=== PATIENT | female | born 1960 | race Caucasian/White ===

== ENCOUNTER 2016-10-23 17:55 | Inpatient (IN) ==
[2016-10-23] MEDS ORDERED: Acetaminophen 325 MG TABLET PO PRN (18:26)
[2016-10-23] MEDS ORDERED: Dextrose Gel 15 GM PO PRN ×2 (19:00)
[2016-10-23] MEDS ORDERED: *HR* Dextrose 50 % in Water (Syg) 50 ML SYRINGE IVP PRN (19:00)
[2016-10-23] MEDS ORDERED: D5% in Water 1,000 ML IVC PRN (19:00)
[2016-10-23] MEDS ORDERED: Insulin DETEMIR 100 UNIT/ML per UNIT SQ ONE (21:00)
[2016-10-23] MEDS: Insulin LISPRO 300 UNITS/3 ML VIAL SQ SCH (21:46)
[2016-10-23] MEDS: *HR* OxyCODONE/APAP 10/325 TABLET PO PRN (21:47)
[2016-10-24] MEDS: *HR* OxyCODONE/APAP 10/325 TABLET PO PRN ×3 (06:31→18:19)
[2016-10-24] MEDS: *HR* Enoxaparin 40 MG/0.4 ML SYRINGE SQ SCH (06:31)
[2016-10-24] MEDS ORDERED: Furosemide 20 MG TABLET PO SCH ×2 (09:00→16:01)
[2016-10-24] MEDS ORDERED: amLODIPine 5 MG TABLET PO SCH (09:00)
[2016-10-24] MEDS ORDERED: Ascorbic Acid 500 MG TABLET PO SCH (09:00)
[2016-10-24] MEDS: Insulin LISPRO 300 UNITS/3 ML VIAL SQ SCH ×4 (09:22→21:27)
[2016-10-24] MEDS: Insulin DETEMIR 100 UNIT/ML X5UNITS SQ SCH ×2 (09:23→21:30)
--- NOTE | 2016-10-24 15:44 | Internal Med History&Physical ---
Date of Encounter: 10/24/16 Time of Encounter: 15:20 Assessment and Plan (1) Complete below knee amputation of right lower extremity Current visit: Yes Status: Acute She will have physical therapy and occupational therapy evaluations with ongoing interventions. She will follow with Dr. Rogers as scheduled. Qualifiers: Encounter type: initial encounter Qualified Code(s): S88.111A - Complete traumatic amputation at level between knee and ankle, right lower leg, initial encounter (2) Ascites Current visit: No Status: Acute Will increase Lasix Qualifiers: Ascites type: other type Qualified Code(s): R18.8 - Other ascites (3) Anemia Current visit: No Status: Chronic Continue ferrous sulfate and vitamin C. We will monitor CBC. Qualifiers: Anemia type: unspecified type Qualified Code(s): D64.9 - Anemia, unspecified (4) Hypertension Current visit: No Status: Chronic We will discontinue amlodipine to lessen edema. Will increase Lasix as per above. Qualifiers: Hypertension type: essential hypertension Qualified Code(s): I10 - Essential (primary) hypertension Internal Medicine - H&P: HPI Chief complaint: Right BKA Admitted From: Hospital to Hospital Transfer Plans for Post Hospital Care: Home History of present illness: Ms. Star Durham is a 56 year old female who was hospitalized at [facility] October 07- where she underwent BKA for progressive right lower leg infection. Her postop course was generally unremarkable and she was admitted to [facility] swing bed for rehabilitation therapy prior to returning home. She had 2 paracentesis performed during her stay by interventional radiology. The right abdominal drainage site continued to drain with an ostomy bag placed. The left side sealed adequately following the procedure. Past Med Surg Social Fam HX - Past Medical History Medical history: diabetes, GERD, hyperlipidemia Psychiatric history: anxiety, depression - Past Surgical History Surgical History: cholecystectomy, other - Social History Smoking Status: Former smoker Smokeless Tobacco Status: No Alcohol use: none Drug use: unknown - Family History Mother Living Status: Hx Family Cardiac Disorders: Yes Hx Family Respiratory Disorders: No Hx Family Cancer: Yes Hx Family GI Disorders: No Hx Family Endocrine Disorder: No Hx Family Neuromuscular Disorders: No Hx Family Neurologic Disorders: No Hx Family HEENT Disorders: No Hx Family Autoimmune Disorders: No Father Living Status: Hx Family Endocrine Disorder: Yes Internal Medicine - H&P: Meds Medroxyprogesterone Acetate [Depo-Provera] 150 mg IJ [id number] 02/03/15 [History] Sertraline [Zoloft] 100 mg PO DAILY 02/03/15 [History] Furosemide [Lasix] 20 mg PO DAILY 10/08/16 [History] Omeprazole [PriLOSEC] 20 mg PO DAILY 10/08/16 [History] Acetaminophen [Tylenol] 650 mg PO Q6HR PRN #0 tablet 10/23/16 [Rx] Amlodipine [Norvasc] 10 mg PO DAILY tablet 10/23/16 [Rx] Ascorbic Acid [Vitamin C] 500 mg PO DAILY tablet 10/23/16 [Rx] Collagenase Oint [Santyl] 1 appl TP BID tube 10/23/16 [Rx] Docusate [Colace] 100 mg PO BID capsule 10/23/16 [Rx] Ferrous Sulfate 325 mg PO BIDWM tablet 10/23/16 [Rx] Insulin DETEMIR [Levemir] 10 unit SQ BID [id number] 10/23/16 [Rx] Insulin LISPRO [HumaLOG] 8 units SQ TIDWM vial 10/23/16 [Rx] OxyCODONE/APAP 10/325 [Percocet 10/325 MG] 1 each PO Q6HR PRN #20 tablet [Rx] Allergies No Known Allergies Allergy (Verified 10/07/16 14:55) All Systems PM: A 10-system review of systems was performed and is negative for pertinent findings except as documented above in the HPI. Review of systems: Gen.: She states her weight has been stable the past few months Cardiovascular: She has a history of hypertension but denies AK heart failure angina DVT or pulmonary embolus. Echocardiogram done 10/08/2016 showed LVEF of 55-60% with moderate LV diastolic dysfunction. There was no significant valvular abnormality seen. There was LAE at 4.20 cm. The interventricular septum and posterior wall thickness measurements were 1.0 cm each. Respiratory: She smoked for a few years in her 20s but denies chronic lung disease GI: She has known liver hemangioma and follows at [facility]. She reports the hemangioma has been present for at least 20 years. She had 2 paracentesis procedures as per above but denies a diagnosis of cirrhosis. Denies other disorders of her liver gallbladder or exocrine pancreas : She had a kidney stone in the remote past. She denies other kidney or bladder disorders Neurologic: She denies large distribution strokes or seizures. Endocrine: She was diagnosed with DM 2 at age 30. She has low HDL. She denies thyroid disease Hematology/oncology: She has anemia but denies internal malignancies Psychiatric: She has depression but denies anxiety or other mental health issues Musculoskeletal: She has right hand deformity as defect. She denies other bone joint or muscle disorders. She had BKA at her recent [facility] stay - Constitutional Vitals: Temp Pulse Resp BP Pulse Ox 98.3 F 80 17 141/69 96 10/24/16 07:15 10/24/16 09:42 10/24/16 09:42 10/24/16 09:42 10/24/16 09:42 Exam: Gen.: She is a well-developed well-nourished female who appears in no severe distress at present time HEENT: Head is atraumatic and normocephalic. Eyes: EOMI. There is no scleral icterus. Mouth: Mucosa is moist. Neck: Supple and nontender. There is no thyromegaly or adenopathy noted. Heart: Regular without murmurs gallops or ectopics. Lungs: No wheezes or crackles are heard. Abdomen: He has a large abdomen with ascites draining into a collection bag in the right anterolateral abdominal wall. The abdomen is nontender to palpation. Extremities: She has 1-2+ edema of the dorsum of the left foot and lower leg. She has trace pitting edema of the thighs bilaterally. She has deformity of the left hand with the thumb showing abnormal angulation at the IP joint and the fifth finger present but deformed. No other fingers are present on the hand. The right hand is unremarkable. The right lower leg is wrapped in elastic wrap which I did not unwrap. Neurologic: Mental status: She is talkative and a good historian. Cranial nerves: Smile is symmetric. Forehead wrinkles bilaterally. Tongue protrudes midline. EOMI. Motor: There is no pronator drift. Cerebellar: Finger to nose is intact bilaterally. Skin: Warm and dry.
[2016-10-25] MEDS: *HR* OxyCODONE/APAP 10/325 TABLET PO PRN ×4 (00:15→23:08)
[2016-10-25] MEDS: *HR* Enoxaparin 40 MG/0.4 ML SYRINGE SQ SCH (06:25)
[2016-10-25] MEDS ORDERED: Ascorbic Acid 500 MG TABLET PO SCH (06:30)
[2016-10-25] MEDS: Insulin LISPRO 300 UNITS/3 ML VIAL SQ SCH ×4 (08:23→19:55)
[2016-10-25] MEDS: Furosemide 40 MG TABLET PO SCH (09:02)
[2016-10-25] MEDS: Insulin DETEMIR 100 UNIT/ML X5UNITS SQ SCH ×2 (09:07→20:03)
[2016-10-25] MEDS: Ondansetron ODT 4 MG TAB.RAPDIS SL PRN (11:19)
--- NOTE | 2016-10-25 12:45 | Internal Med Progress Note ---
Date of Encounter: 10/25/16 Time of Encounter: 12:35 - Assessment and plan (1) Complete below knee amputation of right lower extremity Current Visit: Yes Status: Acute Assessment and plan: October 25. Continue therapy interventions and follow with Dr. Rogers as scheduled Qualifiers: Encounter type: initial encounter Qualified Code(s): S88.111A - Complete traumatic amputation at level between knee and ankle, right lower leg, initial encounter (2) Ascites Current Visit: No Status: Acute Assessment and plan: October 25. Continue Lasix. Qualifiers: Ascites type: other type Qualified Code(s): R18.8 - Other ascites (3) Anemia Current Visit: No Status: Chronic Assessment and plan: October 25. Continue ferrous sulfate and vitamin C. Qualifiers: Anemia type: unspecified type Qualified Code(s): D64.9 - Anemia, unspecified (4) Hypertension Current Visit: No Status: Chronic Assessment and plan: October 25. Remain off amlodipine. Continue Lasix. Qualifiers: Hypertension type: essential hypertension Qualified Code(s): I10 - Essential (primary) hypertension - Subjective Interval history: October 25. She has no new complaints. - Constitutional Vitals: Temp Pulse Resp BP Pulse Ox 98.1 F 85 16 147/69 93 10/25/16 11:25 10/25/16 11:25 10/25/16 11:25 10/25/16 11:25 10/25/16 11:25 Exam: She is resting comfortably in bed. Her edema has slightly lessened in the legs. I reviewed her medications and lab results. Consult Discharge Plan - Plan Referrals: Magdy Desir MD [Primary Care Provider] - 1 week
[2016-10-26] MEDS: *HR* Enoxaparin 40 MG/0.4 ML SYRINGE SQ SCH (05:35)
[2016-10-26] MEDS: Ascorbic Acid 500 MG TABLET PO SCH (05:35)
[2016-10-26] MEDS: *HR* OxyCODONE/APAP 10/325 TABLET PO PRN ×2 (05:43→16:14)
[2016-10-26] MEDS: Furosemide 40 MG TABLET PO SCH (08:36)
[2016-10-26] MEDS: Insulin LISPRO 300 UNITS/3 ML VIAL SQ SCH ×4 (08:37→21:53)
[2016-10-26] MEDS: Insulin DETEMIR 100 UNIT/ML X5UNITS SQ SCH (08:37)
[2016-10-26] MEDS: Ondansetron ODT 4 MG TAB.RAPDIS SL PRN (08:37)
--- NOTE | 2016-10-26 19:08 | Internal Med Progress Note ---
Date of Encounter: 10/26/16 Time of Encounter: 19:00 - Assessment and plan (1) Complete below knee amputation of right lower extremity Current Visit: Yes Status: Acute Assessment and plan: October 25. Continue therapy interventions and follow with Dr. Rogers as scheduled Qualifiers: Encounter type: initial encounter Qualified Code(s): S88.111A - Complete traumatic amputation at level between knee and ankle, right lower leg, initial encounter (2) Ascites Current Visit: No Status: Acute Assessment and plan: October 25. Continue Lasix. October 26. Increase Lasix to 60 mg daily. Qualifiers: Ascites type: other type Qualified Code(s): R18.8 - Other ascites (3) Anemia Current Visit: No Status: Chronic Assessment and plan: October 25. Continue ferrous sulfate and vitamin C. October 26. Recheck labs in a.m. Qualifiers: Anemia type: unspecified type Qualified Code(s): D64.9 - Anemia, unspecified (4) Hypertension Current Visit: No Status: Chronic Assessment and plan: October 25. Remain off amlodipine. Continue Lasix. Qualifiers: Hypertension type: essential hypertension Qualified Code(s): I10 - Essential (primary) hypertension (5) Insulin dependent diabetes mellitus Current Visit: No Status: Chronic Assessment and plan: October 26. Will increase Levemir to 15 units twice a day - Subjective Interval history: October 25. She has no new complaints. October 26. She has no new complaints and feels well overall. - Constitutional Vitals: Temp Pulse Resp BP Pulse Ox 98.3 F 91 16 117/52 91 10/26/16 18:30 10/26/16 18:30 10/26/16 18:30 10/26/16 18:30 10/26/16 18:30 Exam: She is resting comfortably in bed. Her left leg edema has lessened slightly. Blood pressure remains acceptable off amlodipine. Reviewed her medications and lab results. Consult Discharge Plan - Plan Referrals: Magdy Desir MD [Primary Care Provider] - 1 week
[2016-10-26] MEDS ORDERED: Insulin DETEMIR 100 UNIT/ML per UNIT SQ ONE (21:00)
[2016-10-27] MEDS: Ascorbic Acid 500 MG TABLET PO SCH (05:41)
[2016-10-27] MEDS: *HR* Enoxaparin 40 MG/0.4 ML SYRINGE SQ SCH (05:41)
[2016-10-27] MEDS: *HR* OxyCODONE/APAP 10/325 TABLET PO PRN ×4 (05:49→23:10)
[2016-10-27] MEDS: Insulin DETEMIR 100 UNIT/ML X5UNITS SQ SCH ×2 (08:31→21:49)
[2016-10-27] MEDS: Furosemide 40 MG TABLET PO SCH (08:31)
[2016-10-27] MEDS: Insulin LISPRO 300 UNITS/3 ML VIAL SQ SCH ×4 (08:32→21:51)
[2016-10-27 09:36] LABS: Alanine Aminotransferase < 6 Units/L (0-55); Albumin 2.1 g/dL (3.5-5.0); Albumin/Globulin Ratio 0.6 (1.1-2.2); Alkaline Phosphatase 102 Units/L (38-126); Aspartate Amino Transferase 7 Units/L (5-34); BUN/Creatinine Ratio 12 (6-26); Bilirubin,Total 0.4 mg/dL (0.2-1.2); Blood Urea Nitrogen 9 mg/dL (7-20); Calcium 7.9 mg/dL (8.6-10.8); Carbon Dioxide 28 mEq/L (19-29); Chloride 102 mEq/L (98-109); Globulin 3.6 g/dL (2.4-3.5); Glucose 354 mg/dL (70-99); Magnesium 1.5 mg/dL (1.6-2.6); Osmolality,Calculated 305 (280-300); Potassium 3.2 mEq/L (3.5-4.5); Sodium 141 mEq/L (136-145); Total Protein 5.7 g/dL (6.0-8.3); eGFR For African Americans > 60 (> 60); eGFR For Non-African Americans > 60 (> 60)
[2016-10-27 09:59] LABS: Basophils % 0.3 %; Eosinophils # 0.1 K/mcL (0.0-0.6); Eosinophils % 1.5 %; Hematocrit 25.8 % (35.3-44.9); Lymphocytes # 2.1 K/mcL (0.6-4.6); Lymphocytes % 22.3 %; Mean Corpuscular Hemoglobin 25.4 pg (28.0-33.3); Mean Corpuscular Volume 81.9 fL (83.0-100.0); Mean Platelet Volume 9.9 fL (9.4-12.4); Monocytes # 0.6 K/mcL (0.0-1.3); Monocytes % 6.1 %; Neutrophils # 6.3 K/mcL (1.6-8.9); Platelet Count 345 K/mcL (140-400); Red Blood Count 3.15 M/mcL (3.82-4.97); Red Cell Distribution Width 17.6 % (11.5-14.5); Segmented Neutrophils % 67.8 %
--- NOTE | 2016-10-27 18:11 | Internal Med Progress Note ---
Date of Encounter: 10/27/16 Time of Encounter: 15:10 - Assessment and plan (1) Complete below knee amputation of right lower extremity Current Visit: Yes Status: Acute Assessment and plan: October 25. Continue therapy interventions and follow with Dr. Rogers as scheduled Qualifiers: Encounter type: initial encounter Qualified Code(s): S88.111A - Complete traumatic amputation at level between knee and ankle, right lower leg, initial encounter (2) Ascites Current Visit: No Status: Acute Assessment and plan: October 25. Continue Lasix. October 26. Increase Lasix to 60 mg daily. Qualifiers: Ascites type: other type Qualified Code(s): R18.8 - Other ascites (3) Anemia Current Visit: No Status: Chronic Assessment and plan: October 25. Continue ferrous sulfate and vitamin C. October 26. Recheck labs in a.m. October 27. Hemoglobin has improved 8.0. Continue present management Qualifiers: Anemia type: unspecified type Qualified Code(s): D64.9 - Anemia, unspecified (4) Hypertension Current Visit: No Status: Chronic Assessment and plan: October 25. Remain off amlodipine. Continue Lasix. Qualifiers: Hypertension type: essential hypertension Qualified Code(s): I10 - Essential (primary) hypertension (5) Insulin dependent diabetes mellitus Current Visit: No Status: Chronic Assessment and plan: October 26. Will increase Levemir to 15 units twice a day (6) Hypokalemia Current Visit: Yes Status: Acute Assessment and plan: October 27. Will start potassium supplement. (7) Hypomagnesemia Current Visit: No Status: Resolved Assessment and plan: October 27. Magnesium level returned low at 1.5. We will start magnesium supplementation. - Subjective Interval history: October 25. She has no new complaints. October 26. She has no new complaints and feels well overall. October 27. She has no new complaints. - Constitutional Vitals: Temp Pulse Resp BP Pulse Ox 98.4 F 86 16 124/68 93 10/27/16 06:16 10/27/16 06:16 10/27/16 06:16 10/27/16 06:16 10/27/16 09:15 Exam: She is resting comfortably in bed. Her affect is bright and cheerful. Her left lower leg edema has minimally decreased. I reviewed her medications and lab results. Internal Medicine: Result - Labs CBC & Chem 7: 10/27/16 07:24 10/27/16 07:24 Labs: Short CBC 10/27/16 Range/Units 07:24 WBC 9.3 (4.3-11.1) K/mcL Hgb 8.0 L (11.5-15.4) g/dL Hct 25.8 L (35.3-44.9) % Plt Count 345 (140-400) K/mcL Neutrophils # 6.3 (1.6-8.9) K/mcL BMP 10/27/16 07:24 Sodium 141 Potassium 3.2 L Chloride 102 Carbon Dioxide 28 BUN 9 Creatinine 0.75 Glucose 354 H Calcium 7.9 L Liver Function 10/27/16 Range/Units 07:24 Total Bilirubin 0.4 (0.2-1.2) mg/dL AST 7 (5-34) Units/L ALT < 6 (0-55) Units/L Alkaline Phosphatase 102 (38-126) Units/L Albumin 2.1 L (3.5-5.0) g/dL Consult Discharge Plan - Plan Referrals: Magdy Desir MD [Primary Care Provider] - 1 week
[2016-10-28] MEDS: *HR* OxyCODONE/APAP 10/325 TABLET PO PRN ×2 (06:16→17:50)
[2016-10-28] MEDS: Ascorbic Acid 500 MG TABLET PO SCH (06:16)
[2016-10-28] MEDS: *HR* Enoxaparin 40 MG/0.4 ML SYRINGE SQ SCH (06:17)
[2016-10-28] MEDS: Furosemide 40 MG TABLET PO SCH (07:54)
[2016-10-28] MEDS: Magnesium Oxide 400 MG TABLET PO SCH (07:54)
[2016-10-28] MEDS: Ondansetron ODT 4 MG TAB.RAPDIS SL PRN (07:55)
[2016-10-28] MEDS: Insulin LISPRO 300 UNITS/3 ML VIAL SQ SCH ×4 (08:00→20:52)
[2016-10-28] MEDS: Insulin DETEMIR 100 UNIT/ML X5UNITS SQ SCH ×2 (09:18→20:52)
[2016-10-29] MEDS: *HR* OxyCODONE/APAP 10/325 TABLET PO PRN ×4 (01:47→22:21)
[2016-10-29] MEDS: *HR* Enoxaparin 40 MG/0.4 ML SYRINGE SQ SCH (06:20)
[2016-10-29] MEDS: Ascorbic Acid 500 MG TABLET PO SCH (06:20)
[2016-10-29] MEDS: Ondansetron ODT 4 MG TAB.RAPDIS SL PRN (06:45)
[2016-10-29] MEDS: Insulin LISPRO 300 UNITS/3 ML VIAL SQ SCH ×4 (08:40→22:22)
[2016-10-29] MEDS: Magnesium Oxide 400 MG TABLET PO SCH (08:46)
[2016-10-29] MEDS: Furosemide 40 MG TABLET PO SCH (08:46)
[2016-10-29] MEDS: Insulin DETEMIR 100 UNIT/ML X5UNITS SQ SCH ×2 (09:17→22:22)
--- NOTE | 2016-10-29 11:43 | Internal Med Progress Note ---
Date of Encounter: 10/29/16 Time of Encounter: 11:35 - Assessment and plan (1) Complete below knee amputation of right lower extremity Current Visit: Yes Status: Acute Assessment and plan: October 25. Continue therapy interventions and follow with Dr. Rogers as scheduled Qualifiers: Encounter type: initial encounter Qualified Code(s): S88.111A - Complete traumatic amputation at level between knee and ankle, right lower leg, initial encounter (2) Ascites Current Visit: No Status: Acute Assessment and plan: October 25. Continue Lasix. October 26. Increase Lasix to 60 mg daily. October 29. Improved. Continue present regimen Qualifiers: Ascites type: other type Qualified Code(s): R18.8 - Other ascites (3) Anemia Current Visit: No Status: Chronic Assessment and plan: October 25. Continue ferrous sulfate and vitamin C. October 26. Recheck labs in a.m. October 27. Hemoglobin has improved 8.0. Continue present management October 29. Recheck labs in a.m. Qualifiers: Anemia type: unspecified type Qualified Code(s): D64.9 - Anemia, unspecified (4) Hypertension Current Visit: No Status: Chronic Assessment and plan: October 25. Remain off amlodipine. Continue Lasix. October 29. Blood pressure stable. Continue present regimen Qualifiers: Hypertension type: essential hypertension Qualified Code(s): I10 - Essential (primary) hypertension (5) Insulin dependent diabetes mellitus Current Visit: No Status: Chronic Assessment and plan: October 26. Will increase Levemir to 15 units twice a day October 29. Hemoglobin A1c was 12.6% on 10/07/2016. Will increase Levemir to 18 units twice a day. (6) Hypokalemia Current Visit: Yes Status: Acute Assessment and plan: October 27. Will start potassium supplement. October 29. Continue potassium supplementation and recheck labs in a.m. (7) Hypomagnesemia Current Visit: No Status: Acute Assessment and plan: October 27. Magnesium level returned low at 1.5. We will start magnesium supplementation. October 29. Recheck labs in a.m. - Subjective Interval history: October 25. She has no new complaints. October 26. She has no new complaints and feels well overall. October 27. She has no new complaints. October 29. She has no new complaints and feels better. - Constitutional Vitals: Temp Pulse Resp BP Pulse Ox 98.1 F 86 18 155/66 94 10/29/16 06:59 10/29/16 06:59 10/29/16 06:59 10/29/16 06:59 10/29/16 06:59 Exam: She is resting comfortably in bed. Her affect is bright and cheerful. Her edema has lessened in her legs. Heart is regular without murmurs gallops or ectopics. Lungs are clear anteriorly. I reviewed her medications and lab results. Internal Medicine: Result - Labs CBC & Chem 7: 10/27/16 07:24 10/27/16 07:24 Consult Discharge Plan - Plan Referrals: Magdy Desir MD [Primary Care Provider] - 1 week
[2016-10-30 05:34] LABS: Basophils % 0.3 %; Eosinophils # 0.3 K/mcL (0.0-0.6); Eosinophils % 3.3 %; Hematocrit 26.1 % (35.3-44.9); Hemoglobin 7.9 g/dL (11.5-15.4); Immature Granulocytes % 1.6 % (0-4); Lymphocytes # 2.5 K/mcL (0.6-4.6); Lymphocytes % 32.2 %; Mean Corpuscular HGB Conc 30.3 g/dL (31.6-35.5); Mean Corpuscular Hemoglobin 24.8 pg (28.0-33.3); Mean Corpuscular Volume 81.8 fL (83.0-100.0); Mean Platelet Volume 9.7 fL (9.4-12.4); Monocytes # 0.5 K/mcL (0.0-1.3); Monocytes % 6.8 %; Neutrophils # 4.3 K/mcL (1.6-8.9); Platelet Count 315 K/mcL (140-400); Red Blood Count 3.19 M/mcL (3.82-4.97); Red Cell Distribution Width 17.6 % (11.5-14.5); Segmented Neutrophils % 55.8 %
[2016-10-30 05:50] LABS: BUN/Creatinine Ratio 14 (6-26); Blood Urea Nitrogen 10 mg/dL (7-20); Calcium 8.1 mg/dL (8.6-10.8); Carbon Dioxide 30 mEq/L (19-29); Chloride 98 mEq/L (98-109); Glucose 253 mg/dL (70-99); Magnesium 1.6 mg/dL (1.6-2.6); Osmolality,Calculated 300 (280-300); Potassium 3.1 mEq/L (3.5-4.5); Sodium 141 mEq/L (136-145); eGFR For African Americans > 60 (> 60); eGFR For Non-African Americans > 60 (> 60)
[2016-10-30] MEDS: *HR* Enoxaparin 40 MG/0.4 ML SYRINGE SQ SCH (06:30)
[2016-10-30] MEDS: *HR* OxyCODONE/APAP 10/325 TABLET PO PRN ×3 (06:30→22:32)
[2016-10-30] MEDS: Ascorbic Acid 500 MG TABLET PO SCH (06:30)
[2016-10-30] MEDS: Insulin LISPRO 300 UNITS/3 ML VIAL SQ SCH ×4 (07:42→22:25)
[2016-10-30] MEDS: Ondansetron ODT 4 MG TAB.RAPDIS SL PRN (07:52)
[2016-10-30] MEDS: Magnesium Oxide 400 MG TABLET PO SCH (09:29)
[2016-10-30] MEDS: Furosemide 40 MG TABLET PO SCH (09:29)
[2016-10-30] MEDS: Insulin DETEMIR 100 UNIT/ML X5UNITS SQ SCH ×2 (09:31→22:25)
[2016-10-31] MEDS: *HR* Enoxaparin 40 MG/0.4 ML SYRINGE SQ SCH (06:20)
[2016-10-31] MEDS: Ascorbic Acid 500 MG TABLET PO SCH (06:20)
[2016-10-31] MEDS: Ondansetron ODT 4 MG TAB.RAPDIS SL PRN (06:24)
[2016-10-31] MEDS: *HR* OxyCODONE/APAP 10/325 TABLET PO PRN ×2 (06:25→16:58)
[2016-10-31] MEDS: Furosemide 40 MG TABLET PO SCH (07:55)
[2016-10-31] MEDS: Magnesium Oxide 400 MG TABLET PO SCH (07:55)
[2016-10-31] MEDS: Insulin LISPRO 300 UNITS/3 ML VIAL SQ SCH ×4 (07:57→20:45)
[2016-10-31] MEDS: Insulin DETEMIR 100 UNIT/ML X5UNITS SQ SCH ×2 (09:56→20:43)
--- NOTE | 2016-10-31 12:07 | Internal Med Progress Note ---
Date of Encounter: 10/31/16 Time of Encounter: 11:50 - Assessment and plan (1) Complete below knee amputation of right lower extremity Current Visit: Yes Status: Acute Assessment and plan: October 25. Continue therapy interventions and follow with Dr. Rogers as scheduled Qualifiers: Encounter type: initial encounter Qualified Code(s): S88.111A - Complete traumatic amputation at level between knee and ankle, right lower leg, initial encounter (2) Ascites Current Visit: No Status: Acute Assessment and plan: October 25. Continue Lasix. October 26. Increase Lasix to 60 mg daily. October 29. Improved. Continue present regimen October 31. We will change to Bumex and add low-dose Aldactone. Qualifiers: Ascites type: other type Qualified Code(s): R18.8 - Other ascites (3) Anemia Current Visit: No Status: Chronic Assessment and plan: October 25. Continue ferrous sulfate and vitamin C. October 26. Recheck labs in a.m. October 27. Hemoglobin has improved 8.0. Continue present management October 29. Recheck labs in a.m. October 31. Recheck labs in a.m. Qualifiers: Anemia type: unspecified type Qualified Code(s): D64.9 - Anemia, unspecified (4) Hypertension Current Visit: No Status: Chronic Assessment and plan: October 25. Remain off amlodipine. Continue Lasix. October 29. Blood pressure stable. Continue present regimen October 2. Blood pressure fluctuating. We will change from Lasix to Bumex and add low-dose Aldactone as per above. Qualifiers: Hypertension type: essential hypertension Qualified Code(s): I10 - Essential (primary) hypertension (5) Insulin dependent diabetes mellitus Current Visit: No Status: Chronic Assessment and plan: October 26. Will increase Levemir to 15 units twice a day October 29. Hemoglobin A1c was 12.6% on 10/07/2016. Will increase Levemir to 18 units twice a day. October 31. Blood sugars consistently elevated. Will increase Levemir to 25 units twice a day. (6) Hypokalemia Current Visit: Yes Status: Acute Assessment and plan: October 27. Will start potassium supplement. October 29. Continue potassium supplementation and recheck labs in a.m. October 2. Will increase potassium supplement. (7) Hypomagnesemia Current Visit: No Status: Acute Assessment and plan: October 27. Magnesium level returned low at 1.5. We will start magnesium supplementation. October 29. Recheck labs in a.m. October 31. Continue magnesium oxide. - Subjective Interval history: October 25. She has no new complaints. October 26. She has no new complaints and feels well overall. October 27. She has no new complaints. October 29. She has no new complaints and feels better. October 31. She has no complaints and feels better. - Constitutional Vitals: Temp Pulse Resp BP Pulse Ox 98.2 F 71 18 128/64 95 10/31/16 06:23 10/31/16 06:23 10/31/16 06:23 10/31/16 06:23 10/31/16 06:23 Exam: She is sitting in the chair eating lunch. Her edema is slightly improved in both legs. Her affect is bright and cheerful. I reviewed her medications and lab results. Internal Medicine: Result - Labs CBC & Chem 7: 10/30/16 04:30 10/30/16 04:30 Consult Discharge Plan - Plan Referrals: Magdy Desir MD [Primary Care Provider] - 1 week
[2016-10-31] MEDS: Spironolactone 25 MG TABLET PO SCH (16:58)
[2016-11-01 05:25] LABS: Basophils % 0.2 %; Eosinophils # 0.3 K/mcL (0.0-0.6); Eosinophils % 3.2 %; Hematocrit 26.4 % (35.3-44.9); Lymphocytes # 2.6 K/mcL (0.6-4.6); Lymphocytes % 26.6 %; Mean Corpuscular HGB Conc 30.3 g/dL (31.6-35.5); Mean Corpuscular Hemoglobin 24.9 pg (28.0-33.3); Mean Corpuscular Volume 82.2 fL (83.0-100.0); Mean Platelet Volume 9.7 fL (9.4-12.4); Monocytes # 0.5 K/mcL (0.0-1.3); Monocytes % 5.5 %; Neutrophils # 6.2 K/mcL (1.6-8.9); Platelet Count 299 K/mcL (140-400); Red Blood Count 3.21 M/mcL (3.82-4.97); Red Cell Distribution Width 17.3 % (11.5-14.5); Segmented Neutrophils % 63.5 %
[2016-11-01] MEDS: Ascorbic Acid 500 MG TABLET PO SCH (06:03)
[2016-11-01] MEDS: *HR* Enoxaparin 40 MG/0.4 ML SYRINGE SQ SCH (06:03)
[2016-11-01] MEDS: *HR* OxyCODONE/APAP 10/325 TABLET PO PRN ×4 (06:59→21:40)
[2016-11-01] MEDS: Insulin LISPRO 300 UNITS/3 ML VIAL SQ SCH ×3 (07:40→21:41)
[2016-11-01] MEDS: Bumetanide 1 MG TABLET PO SCH (07:41)
[2016-11-01] MEDS: Spironolactone 25 MG TABLET PO SCH (07:41)
[2016-11-01] MEDS: Magnesium Oxide 400 MG TABLET PO SCH (07:41)
[2016-11-01] MEDS: Insulin DETEMIR 100 UNIT/ML X5UNITS SQ SCH ×2 (09:21→21:41)
[2016-11-02] MEDS: Ascorbic Acid 500 MG TABLET PO SCH (06:28)
[2016-11-02] MEDS: *HR* Enoxaparin 40 MG/0.4 ML SYRINGE SQ SCH (06:28)
[2016-11-02] MEDS: Ondansetron ODT 4 MG TAB.RAPDIS SL PRN (06:42)
[2016-11-02] MEDS: *HR* OxyCODONE/APAP 10/325 TABLET PO PRN ×3 (06:44→19:15)
[2016-11-02] MEDS: Magnesium Oxide 400 MG TABLET PO SCH (08:05)
[2016-11-02] MEDS: Spironolactone 25 MG TABLET PO SCH (08:05)
[2016-11-02] MEDS: Insulin LISPRO 300 UNITS/3 ML VIAL SQ SCH ×4 (08:05→19:15)
[2016-11-02] MEDS: Bumetanide 1 MG TABLET PO SCH (08:05)
[2016-11-02] MEDS: Insulin DETEMIR 100 UNIT/ML X5UNITS SQ SCH ×2 (12:49→19:15)
--- NOTE | 2016-11-02 17:40 | Internal Med Progress Note ---
Date of Encounter: 11/02/16 Time of Encounter: 17:30 - Assessment and plan (1) Complete below knee amputation of right lower extremity Current Visit: Yes Status: Acute Assessment and plan: October 25. Continue therapy interventions and follow with Dr. Rogers as scheduled Qualifiers: Encounter type: initial encounter Qualified Code(s): S88.111A - Complete traumatic amputation at level between knee and ankle, right lower leg, initial encounter (2) Ascites Current Visit: No Status: Acute Assessment and plan: October 25. Continue Lasix. October 26. Increase Lasix to 60 mg daily. October 29. Improved. Continue present regimen October 31. We will change to Bumex and add low-dose Aldactone. November 02. Weight loss noted. Continue Bumex and Aldactone with potassium. Qualifiers: Ascites type: other type Qualified Code(s): R18.8 - Other ascites (3) Anemia Current Visit: No Status: Chronic Assessment and plan: October 25. Continue ferrous sulfate and vitamin C. October 26. Recheck labs in a.m. October 27. Hemoglobin has improved 8.0. Continue present management October 29. Recheck labs in a.m. October 2. Recheck labs in a.m. November 02. Hemoglobin stable. Continue present management Qualifiers: Anemia type: unspecified type Qualified Code(s): D64.9 - Anemia, unspecified (4) Hypertension Current Visit: No Status: Chronic Assessment and plan: October 25. Remain off amlodipine. Continue Lasix. October 29. Blood pressure stable. Continue present regimen October 2. Blood pressure fluctuating. We will change from Lasix to Bumex and add low-dose Aldactone as per above. November 02. Blood pressures are satisfactory. Continue present regimen Qualifiers: Hypertension type: essential hypertension Qualified Code(s): I10 - Essential (primary) hypertension (5) Insulin dependent diabetes mellitus Current Visit: No Status: Chronic Assessment and plan: October 26. Will increase Levemir to 15 units twice a day October 29. Hemoglobin A1c was 12.6% on 10/07/2016. Will increase Levemir to 18 units twice a day. October 2. Blood sugars consistently elevated. Will increase Levemir to 25 units twice a day. October 4. Blood sugars are improved. Continue Levemir 25 units twice a day (6) Hypokalemia Current Visit: Yes Status: Acute Assessment and plan: October 27. Will start potassium supplement. October 29. Continue potassium supplementation and recheck labs in a.m. October 31. Will increase potassium supplement. November 02. Potassium level now normal. Continue present dose supplement (7) Hypomagnesemia Current Visit: No Status: Acute Assessment and plan: October 27. Magnesium level returned low at 1.5. We will start magnesium supplementation. October 29. Recheck labs in a.m. October 31. Continue magnesium oxide. - Subjective Interval history: October 25. She has no new complaints. October 26. She has no new complaints and feels well overall. October 27. She has no new complaints. October 29. She has no new complaints and feels better. October 31. She has no complaints and feels better. November 02. She has no new complaints. - Constitutional Vitals: Temp Pulse Resp BP Pulse Ox 98.2 F 88 16 135/70 95 11/02/16 06:28 11/02/16 15:31 11/02/16 15:31 11/02/16 15:31 11/02/16 15:31 Exam: She is sitting on the side of the bed eating supper and is resting comfortable. Edema has decreased in her left leg. Her affect is bright and cheerful. I reviewed her medications and lab results. Internal Medicine: Result - Labs CBC & Chem 7: 11/01/16 04:20 10/30/16 04:30 Consult Discharge Plan - Plan Referrals: Magdy Desir MD [Primary Care Provider] - 1 week
[2016-11-03] MEDS: Ascorbic Acid 500 MG TABLET PO SCH (06:48)
[2016-11-03] MEDS: *HR* Enoxaparin 40 MG/0.4 ML SYRINGE SQ SCH (06:48)
[2016-11-03] MEDS: *HR* OxyCODONE/APAP 10/325 TABLET PO PRN ×3 (06:48→21:55)
[2016-11-03] MEDS: Ondansetron ODT 4 MG TAB.RAPDIS SL PRN (06:49)
[2016-11-03] MEDS: Bumetanide 1 MG TABLET PO SCH (08:58)
[2016-11-03] MEDS: Spironolactone 25 MG TABLET PO SCH (08:58)
[2016-11-03] MEDS: Magnesium Oxide 400 MG TABLET PO SCH (08:58)
[2016-11-03] MEDS: Insulin LISPRO 300 UNITS/3 ML VIAL SQ SCH ×4 (08:58→21:52)
[2016-11-03] MEDS: Insulin DETEMIR 100 UNIT/ML X5UNITS SQ SCH ×2 (08:58→21:51)
[2016-11-04] MEDS: *HR* Enoxaparin 40 MG/0.4 ML SYRINGE SQ SCH (05:55)
[2016-11-04] MEDS: *HR* OxyCODONE/APAP 10/325 TABLET PO PRN ×2 (05:56→17:38)
[2016-11-04] MEDS: Ascorbic Acid 500 MG TABLET PO SCH (05:56)
[2016-11-04] MEDS: Bumetanide 1 MG TABLET PO SCH (08:06)
[2016-11-04] MEDS: Spironolactone 25 MG TABLET PO SCH (08:07)
[2016-11-04] MEDS: Magnesium Oxide 400 MG TABLET PO SCH (08:07)
[2016-11-04] MEDS: Insulin LISPRO 300 UNITS/3 ML VIAL SQ SCH ×4 (08:07→20:19)
[2016-11-04] MEDS: Insulin DETEMIR 100 UNIT/ML X5UNITS SQ SCH ×2 (09:16→20:18)
[2016-11-05] MEDS: *HR* OxyCODONE/APAP 10/325 TABLET PO PRN ×3 (00:02→21:39)
[2016-11-05 05:39] LABS: Hematocrit 28.2 % (35.3-44.9); Hemoglobin 8.6 g/dL (11.5-15.4); Mean Corpuscular HGB Conc 30.5 g/dL (31.6-35.5); Mean Corpuscular Hemoglobin 24.7 pg (28.0-33.3); Mean Platelet Volume 9.3 fL (9.4-12.4); Platelet Count 327 K/mcL (140-400); Red Blood Count 3.48 M/mcL (3.82-4.97); Red Cell Distribution Width 17.1 % (11.5-14.5)
[2016-11-05] MEDS: *HR* Enoxaparin 40 MG/0.4 ML SYRINGE SQ SCH (06:00)
[2016-11-05] MEDS: Ascorbic Acid 500 MG TABLET PO SCH (06:00)
[2016-11-05 06:05] LABS: BUN/Creatinine Ratio 22 (6-26); Blood Urea Nitrogen 15 mg/dL (7-20); Calcium 9.6 mg/dL (8.6-10.8); Carbon Dioxide 30 mEq/L (19-29); Chloride 98 mEq/L (98-109); Glucose 231 mg/dL (70-99); Osmolality,Calculated 296 (280-300); Potassium 4.6 mEq/L (3.5-4.5); Sodium 139 mEq/L (136-145); eGFR For African Americans > 60 (> 60); eGFR For Non-African Americans > 60 (> 60)
[2016-11-05] MEDS: Bumetanide 1 MG TABLET PO SCH (08:04)
[2016-11-05] MEDS: Magnesium Oxide 400 MG TABLET PO SCH (08:04)
[2016-11-05] MEDS: Spironolactone 25 MG TABLET PO SCH (08:04)
[2016-11-05] MEDS: Insulin LISPRO 300 UNITS/3 ML VIAL SQ SCH ×4 (08:05→21:41)
[2016-11-05] MEDS: Insulin DETEMIR 100 UNIT/ML X5UNITS SQ SCH ×2 (09:03→21:42)
[2016-11-06] MEDS: *HR* Enoxaparin 40 MG/0.4 ML SYRINGE SQ SCH (06:30)
[2016-11-06] MEDS: *HR* OxyCODONE/APAP 10/325 TABLET PO PRN ×2 (06:31→17:55)
[2016-11-06] MEDS: Ascorbic Acid 500 MG TABLET PO SCH (06:31)
[2016-11-06] MEDS: Bumetanide 1 MG TABLET PO SCH (07:40)
[2016-11-06] MEDS: Insulin LISPRO 300 UNITS/3 ML VIAL SQ SCH ×4 (07:41→20:34)
[2016-11-06] MEDS: Spironolactone 25 MG TABLET PO SCH (07:41)
[2016-11-06] MEDS: Magnesium Oxide 400 MG TABLET PO SCH (07:43)
[2016-11-06] MEDS: Insulin DETEMIR 100 UNIT/ML X5UNITS SQ SCH ×2 (10:08→20:33)
--- NOTE | 2016-11-06 15:40 | Internal Med Progress Note ---
Date of Encounter: 11/06/16 Time of Encounter: 15:30 - Assessment and plan (1) Complete below knee amputation of right lower extremity Current Visit: Yes Status: Acute Assessment and plan: October 25. Continue therapy interventions and follow with Dr. Rogers as scheduled November 06. She will need a manual wheelchair for DME in the home. This will be her means of mobility and she is able to operate it effectively. Qualifiers: Encounter type: initial encounter Qualified Code(s): S88.111A - Complete traumatic amputation at level between knee and ankle, right lower leg, initial encounter (2) Ascites Current Visit: No Status: Acute Assessment and plan: October 25. Continue Lasix. October 26. Increase Lasix to 60 mg daily. October 29. Improved. Continue present regimen October 31. We will change to Bumex and add low-dose Aldactone. November 02. Weight loss noted. Continue Bumex and Aldactone with potassium. November 06. Continue present dose Bumex and Aldactone. Will decrease supplemental potassium since she has mild hyperkalemia. Qualifiers: Ascites type: other type Qualified Code(s): R18.8 - Other ascites (3) Anemia Current Visit: No Status: Chronic Assessment and plan: October 25. Continue ferrous sulfate and vitamin C. October 26. Recheck labs in a.m. October 27. Hemoglobin has improved 8.0. Continue present management October 29. Recheck labs in a.m. October 2. Recheck labs in a.m. November 02. Hemoglobin stable. Continue present management November 06. Hemoglobin improved to 8.6. Continue present therapy Qualifiers: Anemia type: unspecified type Qualified Code(s): D64.9 - Anemia, unspecified (4) Hypertension Current Visit: No Status: Chronic Assessment and plan: October 25. Remain off amlodipine. Continue Lasix. October 29. Blood pressure stable. Continue present regimen October 2. Blood pressure fluctuating. We will change from Lasix to Bumex and add low-dose Aldactone as per above. November 02. Blood pressures are satisfactory. Continue present regimen Qualifiers: Hypertension type: essential hypertension Qualified Code(s): I10 - Essential (primary) hypertension (5) Insulin dependent diabetes mellitus Current Visit: No Status: Chronic Assessment and plan: October 26. Will increase Levemir to 15 units twice a day October 29. Hemoglobin A1c was 12.6% on 10/07/2016. Will increase Levemir to 18 units twice a day. October 31. Blood sugars consistently elevated. Will increase Levemir to 25 units twice a day. November 02. Blood sugars are improved. Continue Levemir 25 units twice a day November 06. Blood sugars are now elevated. Will increase Levemir further to 30 units twice a day (6) Hypokalemia Current Visit: Yes Status: Acute Assessment and plan: October 27. Will start potassium supplement. October 29. Continue potassium supplementation and recheck labs in a.m. October 2. Will increase potassium supplement. November 02. Potassium level now normal. Continue present dose supplement November 06. Will reduce dose to 20 mEq daily since potassium level is now 4.6. (7) Hypomagnesemia Current Visit: No Status: Acute Assessment and plan: October 27. Magnesium level returned low at 1.5. We will start magnesium supplementation. October 29. Recheck labs in a.m. October 2. Continue magnesium oxide. November 06. Magnesium level was 2.0 yesterday. Continue magnesium oxide. - Subjective Interval history: October 25. She has no new complaints. October 26. She has no new complaints and feels well overall. October 27. She has no new complaints. October 29. She has no new complaints and feels better. October 31. She has no complaints and feels better. November 02. She has no new complaints. November 06. She has no new complaints and feels well. She states her abdominal drainage resolved and the drainage bag has now been removed. - Constitutional Vitals: Temp Pulse Resp BP Pulse Ox 98.7 F 78 16 126/58 96 11/06/16 09:39 11/06/16 13:01 11/06/16 13:01 11/06/16 13:01 11/06/16 13:01 Exam: She is resting comfortably in bed. Her leg edema has essentially resolved on the left. Affect is bright and cheerful. I reviewed her medications and lab results. Internal Medicine: Result - Labs CBC & Chem 7: 11/05/16 05:26 11/05/16 05:26 Consult Discharge Plan - Plan Referrals: Magdy Desir MD [Primary Care Provider] - 1 week
[2016-11-07] MEDS: *HR* OxyCODONE/APAP 10/325 TABLET PO PRN ×4 (01:28→22:10)
[2016-11-07] MEDS ORDERED: *HR* OxyCODONE/APAP 10/325 TABLET ONE (01:28)
[2016-11-07] MEDS: *HR* Enoxaparin 40 MG/0.4 ML SYRINGE SQ SCH (05:56)
[2016-11-07] MEDS: Ascorbic Acid 500 MG TABLET PO SCH (06:01)
[2016-11-07] MEDS: Insulin LISPRO 300 UNITS/3 ML VIAL SQ SCH ×4 (07:49→20:18)
[2016-11-07] MEDS: Magnesium Oxide 400 MG TABLET PO SCH (07:50)
[2016-11-07] MEDS: Bumetanide 1 MG TABLET PO SCH (07:51)
[2016-11-07] MEDS: Spironolactone 25 MG TABLET PO SCH (07:51)
[2016-11-07] MEDS: Insulin DETEMIR 100 UNIT/ML X5UNITS SQ SCH ×2 (08:04→20:28)
[2016-11-07] MEDS: Ondansetron ODT 4 MG TAB.RAPDIS SL PRN (08:06)
[2016-11-08] MEDS: Ascorbic Acid 500 MG TABLET PO SCH (06:31)
[2016-11-08] MEDS: *HR* Enoxaparin 40 MG/0.4 ML SYRINGE SQ SCH (06:31)
[2016-11-08] MEDS: *HR* OxyCODONE/APAP 10/325 TABLET PO PRN ×2 (06:46→13:55)
[2016-11-08 07:41] VITALS: BP 114/67
[2016-11-08] MEDS: Insulin LISPRO 300 UNITS/3 ML VIAL SQ SCH ×2 (08:05→13:56)
[2016-11-08] MEDS: Bumetanide 1 MG TABLET PO SCH (08:51)
[2016-11-08] MEDS: Spironolactone 25 MG TABLET PO SCH (08:51)
[2016-11-08] MEDS: Magnesium Oxide 400 MG TABLET PO SCH (08:52)
--- NOTE | 2016-11-08 09:53 | Discharge Summary ---
Date of Encounter: 11/08/16 Time of Encounter: 09:40 - Discharge Diagnosis (1) Complete below knee amputation of right lower extremity Priority: Primary Status: Acute Qualifiers: Encounter type: initial encounter Qualified Code(s): S88.111A - Complete traumatic amputation at level between knee and ankle, right lower leg, initial encounter (2) Ascites Priority: Secondary Status: Acute Qualifiers: Ascites type: other type Qualified Code(s): R18.8 - Other ascites (3) Anemia Priority: Secondary Status: Chronic Qualifiers: Anemia type: unspecified type Qualified Code(s): D64.9 - Anemia, unspecified (4) Hypertension Priority: Secondary Status: Chronic Qualifiers: Hypertension type: essential hypertension Qualified Code(s): I10 - Essential (primary) hypertension (5) Insulin dependent diabetes mellitus Priority: Secondary Status: Chronic (6) Hypokalemia Priority: Secondary Status: Acute (7) Hypomagnesemia Priority: Secondary Status: Acute - Discharge Medications Prescriptions: Ascorbic Acid [Vitamin C] 500 mg PO DAILY #30 tablet Bumetanide [Bumex] 2 mg PO DAILY #60 tablet Ferrous Sulfate 325 mg PO DAILY #30 tablet Magnesium Oxide [Mag-Ox] 400 mg PO DAILY #30 tablet Potassium Chloride 20 meq PO DAILY #30 tab.er.prt Spironolactone [Aldactone] 12.5 mg PO DAILY #15 tablet Home Medications: Medroxyprogesterone Acetate [Depo-Provera] 150 mg IJ [id number] 02/03/15 [History] Sertraline [Zoloft] 100 mg PO DAILY 02/03/15 [History] Omeprazole [PriLOSEC] 20 mg PO DAILY 10/08/16 [History] Acetaminophen [Tylenol] 650 mg PO Q6HR PRN #0 tablet 10/23/16 [Rx] Collagenase Oint [Santyl] 1 appl TP BID tube 10/23/16 [Rx] Docusate [Colace] 100 mg PO BID capsule 10/23/16 [Rx] Insulin DETEMIR [Levemir] 10 unit SQ BID [id number] 10/23/16 [Rx] Insulin LISPRO [HumaLOG] 8 units SQ TIDWM vial 10/23/16 [Rx] OxyCODONE/APAP 10/325 [Percocet 10/325 MG] 1 each PO Q6HR PRN #20 tablet [Rx] Ascorbic Acid [Vitamin C] 500 mg PO DAILY #30 tablet 11/08/16 [Rx] Bumetanide [Bumex] 2 mg PO DAILY #60 tablet 11/08/16 [Rx] Ferrous Sulfate 325 mg PO DAILY #30 tablet 11/08/16 [Rx] Magnesium Oxide [Mag-Ox] 400 mg PO DAILY #30 tablet 11/08/16 [Rx] Potassium Chloride 20 meq PO DAILY #30 tab.er.prt 11/08/16 [Rx] Spironolactone [Aldactone] 12.5 mg PO DAILY #15 tablet 11/08/16 [Rx] Allergies/Adverse Reactions: Allergies No Known Allergies Allergy (Verified 10/07/16 14:55) Date of admission: 10/23/16 18:09 Primary care physician: Amadeo Cash D.O. Consults: 10/23/16 18:40 Consult to Occupational Therapy [CONS] Routine Comment: evaluate, develop, and implement plan of care Consult to Physical Therapy [CONS] Routine Comment: evaluate, develop, and implement plan of care Consult to [facility] [CONS] Routine Reason for SW Consult: Discharge planning - Patient Status Disposition: Home, Self-Care Functional capacity at discharge: wheelchair bound Overall status at discharge: patient is progressing back to baseline - Discharge Instructions Follow Up With: Amadeo Cash DO [Non-Partnered Physician] - 1 week - Diet and Activity Activity: as per physical therapy Diet: advance to your usual diet Hospital course: Ms. Star Durham is a 56 year old female who was hospitalized at [facility] October 07- where she underwent BKA for progressive right lower leg infection. Her postop course was generally unremarkable and she was admitted to [facility] swing bed for rehabilitation therapy prior to returning home. She had 2 paracentesis performed during her stay by interventional radiology. The right abdominal drainage site continued to drain with an ostomy bag placed. The left side sealed adequately following the procedure. Initial orders were written by the discharging physicians at [facility]. I saw her on October 24 and performed the swing bed history and physical. She had physical therapy and occupational therapy evaluations with ongoing interventions. She progressed satisfactorily and was felt stable for discharge home on November 08. She will have a manual wheelchair for [facility] to assist her mobility. Her ascites improved with increased diuretic dose. Lasix was eventually discontinued and was replaced with Bumex and Aldactone. Her weight decreased from 98.146 kg on 10/24/2016 to 81.23 kg on the day of discharge. Leakage from the right abdominal paracentesis site resolved with the higher dose diuretics and weight loss. Anemia testing showed iron 9, transferrin saturation 6%, transferrin 111, ferritin 1620, B12 773, and folate 7.7. She was given a trial of ferrous sulfate with vitamin C. Her hemoglobin improved to 8.6 on November 05. She will continue ferrous sulfate and vitamin C at discharge. Amlodipine was discontinued because of edema. Her blood pressure remained satisfactory on the prescribed regimen. She will remain off amlodipine at discharge. Her insulin dose was adjusted during hospitalization. She will discuss her insulin therapy regimen with her PCP. On November 08 she was stable for discharge home. She will follow with her PCP within one week and with her vascular surgeon's office as directed. - Time Spent with Patient Total time spent providing and/or coordinating discharge services: - Constitutional Vitals: Temp Pulse Resp BP Pulse Ox 97.9 F 94 16 114/67 97 11/08/16 07:38 11/08/16 07:38 11/08/16 07:38 11/08/16 07:38 11/08/16 07:38
[2016-11-08] MEDS: Insulin DETEMIR 100 UNIT/ML X5UNITS SQ SCH (10:29)
--- NOTE | 2016-11-08 14:20 | Physician Discharge Referral ---
Home Health/Hosp Referral Info Transfer to: Home Health Attending Provider: Thang Provider in Charge Post Discharge: PCP (Amadeo Cash D.O.) - Diagnosis (1) Complete below knee amputation of right lower extremity Priority: Primary Status: Acute (2) Ascites Priority: Secondary Status: Acute (3) Anemia Priority: Secondary Status: Chronic (4) Hypertension Priority: Secondary Status: Chronic (5) Insulin dependent diabetes mellitus Priority: Secondary Status: Chronic (6) Hypokalemia Priority: Secondary Status: Acute (7) Hypomagnesemia Priority: Secondary Status: Acute - Respiratory Orders Smoking Cessation: Smoking cessation has been advised. For more information, call the [place] Tobacco Quit Line at 9-333-DJGW-NOW. - Diet/Nutrition Diet/Nutrition Orders: No Added Salt (DANA) - Activity Activity Orders: Chair - Services Needed Following services are medically necessary services: Nursing, Home Health Aide, Physical Therapy, Occupational Therapy Other Treatments: Wound care per surgical protocol - Transfer Medications Prescriptions: Ascorbic Acid [Vitamin C] 500 mg PO DAILY #30 tablet Bumetanide [Bumex] 2 mg PO DAILY #60 tablet Ferrous Sulfate 325 mg PO DAILY #30 tablet Magnesium Oxide [Mag-Ox] 400 mg PO DAILY #30 tablet Potassium Chloride 20 meq PO DAILY #30 tab.er.prt Spironolactone [Aldactone] 12.5 mg PO DAILY #15 tablet Home Medications: Medroxyprogesterone Acetate [Depo-Provera] 150 mg IJ [id number] 02/03/15 [History] Sertraline [Zoloft] 100 mg PO DAILY 02/03/15 [History] Omeprazole [PriLOSEC] 20 mg PO DAILY 10/08/16 [History] Acetaminophen [Tylenol] 650 mg PO Q6HR PRN #0 tablet 10/23/16 [Rx] Collagenase Oint [Santyl] 1 appl TP BID tube 10/23/16 [Rx] Docusate [Colace] 100 mg PO BID capsule 10/23/16 [Rx] Insulin DETEMIR [Levemir] 10 unit SQ BID [id number] 10/23/16 [Rx] Insulin LISPRO [HumaLOG] 8 units SQ TIDWM vial 10/23/16 [Rx] OxyCODONE/APAP 10/325 [Percocet 10/325 MG] 1 each PO Q6HR PRN #20 tablet [Rx] Ascorbic Acid [Vitamin C] 500 mg PO DAILY #30 tablet 11/08/16 [Rx] Bumetanide [Bumex] 2 mg PO DAILY #60 tablet 11/08/16 [Rx] Ferrous Sulfate 325 mg PO DAILY #30 tablet 11/08/16 [Rx] Magnesium Oxide [Mag-Ox] 400 mg PO DAILY #30 tablet 11/08/16 [Rx] Potassium Chloride 20 meq PO DAILY #30 tab.er.prt 11/08/16 [Rx] Spironolactone [Aldactone] 12.5 mg PO DAILY #15 tablet 11/08/16 [Rx] Allergies/Adverse Reactions: Allergies No Known Allergies Allergy (Verified 10/07/16 14:55) Certification: Further, I certify that my clinical findings support that this patient is homebound (i.e. absences from home require considerable and taxing effort and are for medical reasons or cheondoism services or infrequently or short duration when for other reasons) because: Homebound Reason: Leaving home requires considerable and taxing effort due to condition (Right BKA, ascites) Attestation: My signature below is to certify that this patient is under my care and that I, or nurse practitioner, or a physician's assistant program manager working with me, has a face-to -face encounter with this patient.
== END 2016-11-08 13:57 | disposition home or self-care (01) | DRG 560 ==
LOC: INPPIK 18:09
PROVIDERS: ADMIT Internal Medicine; ATTEND Internal Medicine